=== PATIENT | female | born 2000 | race Caucasian/White ===

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

== ENCOUNTER → 2018-01-27 | Outpatient (CLI) | payer OTHER | LOC: LAB 09:40 | PROVIDERS: ATTEND Physician Assistant | DX: E83.52 Hypercalcemia (principal) | CPT/HCPCS: 36415; 83970 ==

== ENCOUNTER → 2018-01-27 | Outpatient (CLI) | payer OTHER | LOC: LAB 11:16 | PROVIDERS: ATTEND Internal Medicine Cardiovascular Disease | DX: R07.9 Chest pain, unspecified (principal) | CPT/HCPCS: 36415; 85379 ==

== ENCOUNTER → 2018-02-03 | Outpatient (CLI) | payer OTHER | LOC: LAB 14:47 | PROVIDERS: ATTEND Otolaryngology | DX: R09.81 Nasal congestion (principal) | CPT/HCPCS: 36415; 86003 ==

== ENCOUNTER → 2018-03-15 | Outpatient (CLI) | payer OTHER ==
[~2018-03-15] MED LIST: BIOT50002; IPRN ENA; MOM PO; NORE-74 PO; PHYT100T4 PO
--- NOTE | 2018-03-16 06:32 | RT STRESS TEST REPORT ---
[place] [facility] [place] NAME: CHILO GRIFFIN : [id number] MR: [id number] V: [id number] EXAM DATE: ORDERING PHYSICIAN: DIANELYS KHOURY TECHNOLOGIST: Sumit Acquisition Time: 2018-03-15 13:57:43 Total Exercise Time: 00:10:05 Test Indications: Chest Pain / Discomfort Medications: Protocol: BRUCE2 Max HR: 203 BPM 101% of Pred: 200 BPM Max BP: 143/079 mmHG Max Work Load: 11.8 METS Confirmed by DIANELYS KHOURY ([id number]) on 03/16/2018 6:32:08 AM Referred By: Overread By: DIANELYS KHOURY
== END ==
LOC: RESP 06:53
PROVIDERS: ATTEND Internal Medicine Cardiovascular Disease
DX: R07.9 Chest pain, unspecified (principal)
CPT/HCPCS: 93017

== ENCOUNTER → 2018-04-05 | Outpatient (REF) | payer OTHER | LOC: ZZSENDIN 17:51 | PROVIDERS: ATTEND Internal Medicine Endocrinology, Diabetes & Metabolism | DX: E04.9 Nontoxic goiter, unspecified (principal); E05.90 Thyrotoxicosis, unspecified without thyrotoxic crisis or storm | CPT/HCPCS: 84432; 84439; 84443; 84445; 84481 ==

== ENCOUNTER → 2018-04-09 | Outpatient (CLI) | payer OTHER ==
--- NOTE | 2018-04-09 19:48 | RADIOLOGY IMAGING REPORT ---
[place] [facility] [place] NAME: Addis Eugene : 2000 MR: [id number] V: [id number] EXAM DATE: ORDERING PHYSICIAN: ALEXSANDER DELATORRE TECHNOLOGIST: [place] [facility] [place] Patient: Addis Eugene : 2000 Visit/Account:[id number] Date of Sevice: 04/09/2018 THYROID HISTORY: Goiter. COMPARISON: None. FINDINGS: SIZE: Within normal limits. Right lobe: 1.0 x 1.6 x 5.6 cm Left lobe: 1.1 x 1.6 x 5.7 cm Isthmus: 2 mm PARENCHYMA: Homogeneous. NODULES: Right lobe: * 0.3 cm predominantly cystic nodule inferior. Left lobe: * 0.3 cm predominantly cystic nodules mid to superior and inferior. Isthmus: * None. VASCULARITY: Within normal limits. ADDITIONAL FINDINGS: None. IMPRESSION: Several very small cystic nodules bilateral, otherwise unremarkable ultrasound thyroid. No nodule war ranting further evaluation with tissue sampling. REFERENCE: 2015 [place] [employer] Management Guidelines for Adult Patients with Thyroid Nodules and D ifferentiated Thyroid Cancer: The [place] [employer] (CARMINE) Guidelines Task Force on Thyroid Nodules and Differentiated Thyroid Cancer. SONOGRAPHIC PATTERNS: * Benign: Purely cystic nodules (no solid component); estimated risk of malignancy <1 percent; no bi opsy recommended. * Very Low Suspicion: Spongiform or partially cystic nodules without any of the sonographic features described in low, intermediate, or high suspicion patterns; estimated risk of malignancy <3 percent; consider FNA at > 2 cm (Observation without FNA is also a reasonable option). * Low Suspicion: Isoechoic or hyperechoic solid nodule, or partially cystic nodule with eccentric so lid areas, without microcalcification, irregular margin or ETE (extra-thyroidal extension), or taller than wide shape; estimated risk of malignancy 5-10 percent; recommend FNA at >1.5 cm. * Intermediate Suspicion: Hypoechoic solid nodule with smooth margins without microcalcifications, E TE (extra-thyroidal extension), or taller than wide shape; estimated risk of malignancy 10-20 percent ; recommend FNA at > 1 cm. * High Suspicion: Solid hypoechoic nodule or solid hypoechoic component of a partially cystic nodule with one or more of the following features: irregular margins (infiltrative, microlobulated), microc alcifications, taller than wide shape, rim calcifications with small extrusive soft tissue component, evidence of ETE (extra-thyroidal extension); estimated risk of malignancy >70-90 percent; recommend FNA at > 1 cm. NOTES: * Although a sonographically suspicious subcentimeter thyroid nodule without evidence of extrathyroi sophie extension or sonographically suspicious lymph nodes may be observed with close sonographic follow -up rather than pursuing immediate FNA, patient age and preference may modify decision-making. * A > 50% interval increase in nodule volume and/or development of new suspicious sonographic featur es are felt to be a valid reasons for potential re-aspiration of a nodule previously shown to have be nign FNA cytology. Report Dictated By: Dayday Meyers MD at 04/09/2018 7:43 PM Report E-Signed By: Dayday Meyers MD at 04/09/2018 7:45 PM WSN:[id number]
== END ==
LOC: US 15:30
PROVIDERS: ATTEND Internal Medicine Endocrinology, Diabetes & Metabolism
DX: E04.1 Nontoxic single thyroid nodule (principal)
CPT/HCPCS: 76536

== ENCOUNTER → 2018-06-01 | Outpatient (REF) | payer OTHER ==
[2018-06-01 17:41] LABS: PLATELET COUNT, AUTOMATED 292 K/uL (150-450)
== END ==
PROVIDERS: ATTEND Nurse Practitioner Family
DX: R10.13 Epigastric pain (principal)
CPT/HCPCS: 82040; 82150; 82247; 82310; 82374; 82435; 82565; 82947; 83690; 84075; 84132; 84155; 84295; 84450; 84460; 84520; 85025

== ENCOUNTER 2018-06-05 19:37 | Emergency (ER) | payer OTHER ==
--- NOTE | 2018-06-05 20:19 | ER Report ---
History and Physical Time Seen By MD: 20:19 HPI/ROS CHIEF COMPLAINT: Abdominal pain HISTORY OF PRESENT ILLNESS: 18-year-old female patient presents to emergency room with complaint of abdominal pain. Patient states that she has had abdominal pain today as well as diarrhea and vomiting. She states the pain seems to be worse in the lower abdomen. She denies having any fevers or chills. She states she did take some antacids for this with no improvement. She states that she was able to eat some cereal earlier this morning without any difficulties. However she did try to eat some lunch and vomited. Patient states that she did have some nausea and vomiting earlier this week. She states that lasted for days and seemed to resolve. She states that she feels like she's not been able to keep any fluids down feels dehydrated. REVIEW OF SYSTEMS: Respiratory: No cough, no dyspnea. Cardiovascular: No chest pain, no palpitations. Gastrointestinal: As noted above Musculoskeletal: No back pain. Allergies: Coded Allergies: acetaminophen (Verified Allergy, Severe, 06/05/18) oxycodone (Verified Allergy, Severe, 06/05/18) Home Meds Active Scripts Ipratropium [place] 0.03% Ns (IPRATROPIUM BROMIDE 0.03% NS) 21 Mcg [place], 2 SPRAYS KELL BID for 30 Days, #1 BOT Prov:MAURI PINEDO JR, MD 02/17/18 Reported Medications Norethindrone A-E Estradiol (MICROGESTIN) 1 Each Tablet, 1 EACH PO 02/05/18 Magnesium Hydroxide (MILK OF MAGNESIA) Unknown Strength Oral.susp, PO, BOTTLE 02/05/18 Biotin (Biotin) 5,000 Mcg Tab.subl 02/05/18 Phytonadione (VITAMIN K) Unknown Strength Tablet, PO 02/05/18 Past Medical/Surgical History Patient has a past medical history of migraines, tachycardia, possible e ndometriosis. Patient has a surgical history of appendectomy, wisdom teeth removed. Reviewed Nurses Notes: Yes Smoking Status: Never Smoker Constitutional Vital Sign - Last 24 Hours 06/05/18 06/05/18 06/05/18 06/05/18 20:22 20:23 20:37 20:52 Temp 98.2 Pulse 95 96 87 75 Resp 16 23 9 B/P (MAP) 117/85 (96) 117/85 Pulse Ox 93 93 93 94 O2 Delivery Room Air 06/05/18 06/05/18 06/05/18 06/05/18 21:07 21:12 21:57 22:12 Pulse 86 88 90 93 Resp 19 21 Pulse Ox 94 84 92 91 06/05/18 06/05/18 22:27 22:42 Pulse 91 100 Pulse Ox 93 92 Physical Exam General Appearance: The patient is alert, has no immediate need for airway protection and no current signs of toxicity. Respiratory: Chest is non tender, lungs are clear to auscultation. Cardiac: regular rate and rhythm Gastrointestinal: Abdomen is soft and mildly tender in bilateral lower quadrants, no masses, bowel sounds normal. Musculoskeletal: Neck: Neck is supple and non tender. Extremities have full range of motion and are non tender. Skin: No rashes or lesions. DIFFERENTIAL DIAGNOSIS: After history and physical exam differential diagnosis was considered for abdominal pain including but not limited to appendicitis, cholecystitis, gastritis and urinary tract infection. Medical Decision Making Data Points Result Diagram: 06/05/18204006/05/182040 Laboratory Hematology Test 06/05/18 20:20 06/05/18 20:41 06/05/18 21:56 Urine Color Straw Urine Clarity Clear Urine pH 6.0 pH (4.8-9.5) Urine Specific [place] 1.006 Urine Protein Negative mg/dL (NEGATIVE) Urine Glucose (UA) Negative mg/dL (NEGATIVE) Urine Ketones Negative mg/dL (NEGATIVE) Urine Blood Negative (NEGATIVE) Urine Nitrite Negative (NEGATIVE) Urine Bilirubin Negative (NEGATIVE) Urine Urobilinogen Negative mg/dL (0.2-1.9) Urine Leukocyte Esterase Negative (NEGATIVE) Urine RBC 1 /HPF (0-2/HPF) Urine WBC <1 /HPF (0-5/HPF) Urine Squamous Epithelial Cells Few /LPF (</=FEW) Urine Bacteria Few /HPF (NONE-FEW) Urine Mucus None /HPF (NONE-FEW) Red Blood Count 5.14 M/uL (4.17-5.56) Mean Corpuscular Volume 88.0 fL (80.0-96.0) Mean Corpuscular Hemoglobin 30.5 pg (26.0-33.0) Mean Corpuscular Hemoglobin Concent 34.7 g/dL (32.0-36.0) Red Cell Distribution Width 12.2 % (11.5-14.5) Mean Platelet Volume 8.7 fL (7.2-11.1) Neutrophils (%) (Auto) 78.7 % (39.4-72.5) Lymphocytes (%) (Auto) 12.7 % (17.6-49.6) Monocytes (%) (Auto) 8.2 % (4.1-12.4) Eosinophils (%) (Auto) 0.1 % (0.4-6.7) Basophils (%) (Auto) 0.3 % (0.3-1.4) Nucleated RBC Relative Count (auto) 0.0 /100WBC Neutrophils # (Auto) 13.6 K/uL (2.0-7.4) Lymphocytes # (Auto) 2.2 K/uL (1.3-3.6) Monocytes # (Auto) 1.4 K/uL (0.3-1.0) Eosinophils # (Auto) 0.0 K/uL (0.0-0.5) Basophils # (Auto) 0.1 K/uL (0.0-0.1) Nucleated RBC Absolute Count (auto) 0.00 K/uL Stool Leukocytes, Qualitative Positive Sodium Level 137 mmol/L (137-145) Potassium Level 4.0 mmol/L (3.5-5.0) Chloride Level 102 mmol/L (98-107) Carbon Dioxide Level 26 mmol/L (22-31) Blood Urea Nitrogen 12 mg/dl (7-18) Creatinine 0.70 mg/dl (0.52-1.04) Glomerular Filtration Rate Calc > 60.0 Random Glucose 78 mg/dl (75-110) Calcium Level 9.8 mg/dl (8.4-10.2) Total Bilirubin 1.0 mg/dl (0.2-1.3) Aspartate Amino Transf (AST/SGOT) 21 U/L (0-35) Alanine Aminotransferase (ALT/SGPT) 27 U/L (0-56) Alkaline Phosphatase 72 U/L (0-126) Total Protein 7.6 g/dl (6.3-8.2) Albumin 4.8 g/dl (3.5-5.0) Amylase Level 117 U/L (0-110) Lipase 94 U/L (23-300) Human Chorionic Gonadotropin, Qual Negative (NEGATIVE) C. difficile Toxin B Gene (PCR) Positive Helicobacter pylori IgG Antibody Negative (NEGATIVE) Stool Occult Blood (IFOB) Positive (NEGATIVE) Chemistry Test 06/05/18 20:20 06/05/18 20:41 06/05/18 21:56 Urine Color Straw Urine Clarity Clear Urine pH 6.0 pH (4.8-9.5) Urine Specific [place] 1.006 Urine Protein Negative mg/dL (NEGATIVE) Urine Glucose (UA) Negative mg/dL (NEGATIVE) Urine Ketones Negative mg/dL (NEGATIVE) Urine Blood Negative (NEGATIVE) Urine Nitrite Negative (NEGATIVE) Urine Bilirubin Negative (NEGATIVE) Urine Urobilinogen Negative mg/dL (0.2-1.9) Urine Leukocyte Esterase Negative (NEGATIVE) Urine RBC 1 /HPF (0-2/HPF) Urine WBC <1 /HPF (0-5/HPF) Urine Squamous Epithelial Cells Few /LPF (</=FEW) Urine Bacteria Few /HPF (NONE-FEW) Urine Mucus None /HPF (NONE-FEW) White Blood Count 17.2 k/uL (4.5-11.0) Red Blood Count 5.14 M/uL (4.17-5.56) Hemoglobin 15.7 g/dL (12.0-16.0) Hematocrit 45.2 % (34.0-47.0) Mean Corpuscular Volume 88.0 fL (80.0-96.0) Mean Corpuscular Hemoglobin 30.5 pg (26.0-33.0) Mean Corpuscular Hemoglobin Concent 34.7 g/dL (32.0-36.0) Red Cell Distribution Width 12.2 % (11.5-14.5) Platelet Count 283 K/uL (150-450) Mean Platelet Volume 8.7 fL (7.2-11.1) Neutrophils (%) (Auto) 78.7 % (39.4-72.5) Lymphocytes (%) (Auto) 12.7 % (17.6-49.6) Monocytes (%) (Auto) 8.2 % (4.1-12.4) Eosinophils (%) (Auto) 0.1 % (0.4-6.7) Basophils (%) (Auto) 0.3 % (0.3-1.4) Nucleated RBC Relative Count (auto) 0.0 /100WBC Neutrophils # (Auto) 13.6 K/uL (2.0-7.4) Lymphocytes # (Auto) 2.2 K/uL (1.3-3.6) Monocytes # (Auto) 1.4 K/uL (0.3-1.0) Eosinophils # (Auto) 0.0 K/uL (0.0-0.5) Basophils # (Auto) 0.1 K/uL (0.0-0.1) Nucleated RBC Absolute Count (auto) 0.00 K/uL Stool Leukocytes, Qualitative Positive Glomerular Filtration Rate Calc > 60.0 Calcium Level 9.8 mg/dl (8.4-10.2) Total Bilirubin 1.0 mg/dl (0.2-1.3) Aspartate Amino Transf (AST/SGOT) 21 U/L (0-35) Alanine Aminotransferase (ALT/SGPT) 27 U/L (0-56) Alkaline Phosphatase 72 U/L (0-126) Total Protein 7.6 g/dl (6.3-8.2) Albumin 4.8 g/dl (3.5-5.0) Amylase Level 117 U/L (0-110) Lipase 94 U/L (23-300) Human Chorionic Gonadotropin, Qual Negative (NEGATIVE) C. difficile Toxin B Gene (PCR) Positive Helicobacter pylori IgG Antibody Negative (NEGATIVE) Stool Occult Blood (IFOB) Positive (NEGATIVE) Urinalysis Test 06/05/18 20:20 Urine Color Straw Urine Clarity Clear Urine pH 6.0 pH (4.8-9.5) Urine Specific [place] 1.006 Urine Protein Negative mg/dL (NEGATIVE) Urine Glucose (UA) Negative mg/dL (NEGATIVE) Urine Ketones Negative mg/dL (NEGATIVE) Urine Blood Negative (NEGATIVE) Urine Nitrite Negative (NEGATIVE) Urine Bilirubin Negative (NEGATIVE) Urine Urobilinogen Negative mg/dL (0.2-1.9) Urine Leukocyte Esterase Negative (NEGATIVE) Urine RBC 1 /HPF (0-2/HPF) Urine WBC <1 /HPF (0-5/HPF) Urine Squamous Epithelial Cells Few /LPF (</=FEW) Urine Bacteria Few /HPF (NONE-FEW) Urine Mucus None /HPF (NONE-FEW) EKG/Imaging Imaging CT abdomen and pelvis with IV contrast Indication: Nausea, vomiting and diarrhea. Comparison: None available. . Technique: Axial CT images were obtained through the abdomen and pelvis during injection of nonionic iodinated intravenous contrast. Reformatted coronal and sagittal images were also obtained. One of the following dose optimization techniques was utilized in the performance of this exam: Automated exposure control; adjustment of the mA and/or kV according to the patient's size; or use of an iterative reconstruction technique. Specific details can be referenced in the facility's radiology CT exam operational policy. Contrast: 75 ml of Isovue-370 IV contrast. Findings: Lower lung hoover: Limited views lower lung field are unremarkable. Liver: No focal parenchymal abnormality of the liver. Biliary: Gallbladder appears unremarkable as well as the intra and extra hepatic biliary system. Pancreas: Normal appearance. Spleen: Normal appearance. Adrenal glands: Unremarkable. Kidneys / retroperitoneum: No evidence of nephrolithiasis or hydronephrosis. No focal normality. Bowel / peritoneum / mesenteries: Colon shows no focal abnormality with some stool and fluid in the lumen. Status post appendectomy. Small bowel shows no f ocal normality or obstruction. The stomach is unremarkable. No free air, free fluid, fluid collections or areas of inflammation. Lymph node assessment: No pathologic adenopathy identified. Pelvic structures: Pelvic structures visualized within normal limits. Vessels: No significant atherosclerotic calcifications seen throughout a nonaneurysmal abdominal aorta and branches. Musculoskeletal / Body wall: No acute or aggressive osseous abnormality. IMPRESSION: 1. No acute intra-abdominal abnormality Report Dictated By: Sumanth Chacon at 06/05/2018 10:00 PM Report E-Signed By: Sumanth Chacon at 06/05/2018 10:07 PM ACUTE ABDOMEN SERIES 3 VIEW HISTORY: Abdominal pain. Diarrhea. COMPARISON: None. TECHNIQUE: PA upright view of the chest, AP supine and AP upright views of the abdomen. Chest: The lungs are clear. There is no pneumothorax or pleural effusion. The cardiac and mediastinal silhouettes are within normal limits. Bones and soft tissues are unremarkable. Abdomen: The distribution of bowel gas is normal, with bowel in all four quadrants as well as centrally. No free air. No dilated loops of bowel. There are a few nonspecific air-fluid levels. No acute osseous abnormality. There is surgical clips in the right lower quadrant, presumed from appendectomy. IMPRESSION: 1. No acute cardiopulmonary process. 2. There are scattered nonspecific air-fluid levels. Findings can be seen in setting of infection. No bowel obstruction. Report Dictated By: Quin Chin at 06/05/2018 9:58 PM Report E-Signed By: Quin Chin at 06/05/2018 10:00 PM ED Course/Re-evaluation ED Course Patient is admitted and examined, history and physical were obtained. Differential diagnoses were considered. On examination lungs are clear, heart is regular, abdomen was soft and tender most notably and low bilateral lower quadrants. A CBC, CMP, urinalysis were obtained. Patient had an elevated white count of 17,000 with left shift. I believe it could be secondary to the margination caused by vomiting. However acute abdominal x-ray showed possible b owel gas pattern consistent with infection. With the elevated white count I did opt to go ahead and do a CT scan of the abdomen and pelvis. That did show no acute findings. We are able to collect a stool sample. Patient was positive for blood and white blood cells. I did get the C. difficile back which was also positive. I believe the cause of her discomfort is likely C. difficile. She had been on clindamycin for a bacterial vaginosis recently. I believe that is likely the cause. I discussed the findings with patient. Patient states she been on Flagyl for times of the last 2 months. As a result of that we will go with the other first-line treatment of vancomycin orally. I discussed this with the patient who verbalized understanding and agreement. Patient should follow-up with her primary care provider in the next week. Patient was complaining of headache while she was here. We did give her sumatriptan with no improvement. Patient was treated with Toradol and Benadryl, as she already received Zofran. Patient states she had improvement in her headache, although she does feel dizzy secondary to Benadryl. Decision to Disposition Date: Jun 05, 2018 Decision to Disposition Time: 23:22 Depart Departure Latest Vital Signs Vital Signs Date Time Temp Pulse Resp B/P (MAP) Pulse Ox O2 Delivery O2 Flow Rate FiO2 06/05/18 22:42 100 92 06/05/18 21:12 21 06/05/18 20:23 98.2 117/85 Room Air Impression: Primary Impression: C. difficile colitis Condition: Improved Disposition: HOME OR SELF-CARE New Scripts Vancomycin Hcl (VANCOCIN HCL) 125 Mg Cap 125 MG PO QID, #38 CAP Prov: TIKI CABRERA 06/05/18 Patient Instructions: Clostridium Difficile Infection (ED) Additional Instructions: Increase fluid intake. Get plenty of rest. Follow up with your primary care provider in the next week for re-evaluation. Wash hands after going to the bathroom. Use Baby wipes to help with skin irritation. Apply Desitin to help protect the skin. Return to the ER if condition worsens. TIKI CABRERA Jun 05, 2018 20:19
[2018-06-05 20:23] VITALS: BP 117/85
[2018-06-05] MEDS ORDERED: NS(*) 0.9% 1000 ML BAG 1,000 ML IV ONE (20:29)
[2018-06-05 21:00] LABS: PLATELET COUNT, AUTOMATED 283 K/uL (150-450)
[2018-06-05] MEDS ORDERED: IOPAMIDOL 61% 100 ML INFUS BTL 100 ML ONE (21:37)
[2018-06-05] MEDS ORDERED: SUMAtriptan SUCC 25MG TAB PO ONE (21:50)
[2018-06-05] MEDS ORDERED: ONDANSETRON 4 MG/2 ML VIAL IVP ONE (21:50)
--- NOTE | 2018-06-05 22:04 | RADIOLOGY IMAGING REPORT ---
FACILITY: [facility] PATIENT NAME: Addis Eugene : 2000 MR: [id number] V: [id number] EXAM DATE: ORDERING PHYSICIAN: TIKI CABRERA TECHNOLOGIST: Location: [facility] Patient: Addis Eugene : 2000 Visit/Account:[id number] Date of Sevice: 06/05/2018 ACUTE ABDOMEN SERIES 3 VIEW HISTORY: Abdominal pain. Diarrhea. COMPARISON: None. TECHNIQUE: PA upright view of the chest, AP supine and AP upright views of the abdomen. Chest: The lungs are clear. There is no pneumothorax or pleural effusion. The cardiac and mediastinal silhouettes are within normal limits. Bones and soft tissues are unremarkable. Abdomen: The distribution of bowel gas is normal, with bowel in all four quadrants as well as central ly. No free air. No dilated loops of bowel. There are a few nonspecific air-fluid levels. No acute os seous abnormality. There is surgical clips in the right lower quadrant, presumed from appendectomy. IMPRESSION: 1. No acute cardiopulmonary process. 2. There are scattered nonspecific air-fluid levels. Findings can be seen in setting of infection. No bowel obstruction. Report Dictated By: Quin Chin at 06/05/2018 9:58 PM Report E-Signed By: Quin Chin at 06/05/2018 10:00 PM WSN:[id number]
--- NOTE | 2018-06-05 22:10 | RADIOLOGY IMAGING REPORT ---
FACILITY: [facility] - [place] PATIENT NAME: Addis Eugene : 2000 MR: [id number] V: [id number] EXAM DATE: ORDERING PHYSICIAN: TKII CABRERA TECHNOLOGIST: Location: [facility] - [place] Patient: Addis Eugene : 2000 Visit/Account:[id number] Date of Sevice: 06/05/2018 CT abdomen and pelvis with IV contrast Indication: Nausea, vomiting and diarrhea. Comparison: None available. . Technique: Axial CT images were obtained through the abdomen and pelvis during injection of nonioni c iodinated intravenous contrast. Reformatted coronal and sagittal images were also obtained. One of the following dose optimization techniques was utilized in the performance of this exam: Autom ated exposure control; adjustment of the mA and/or kV according to the patient's size; or use of an i terative reconstruction technique. Specific details can be referenced in the facility's radiology C T exam operational policy. Contrast: 75 ml of Isovue-370 IV contrast. Findings: Lower lung hoover: Limited views lower lung field are unremarkable. Liver: No focal parenchymal abnormality of the liver. Biliary: Gallbladder appears unremarkable as well as the intra and extra hepatic biliary system. Pancreas: Normal appearance. Spleen: Normal appearance. Adrenal glands: Unremarkable. Kidneys / retroperitoneum: No evidence of nephrolithiasis or hydronephrosis. No focal normality. Bowel / peritoneum / mesenteries: Colon shows no focal abnormality with some stool and fluid in the l umen. Status post appendectomy. Small bowel shows no focal normality or obstruction. The stomach is u nremarkable. No free air, free fluid, fluid collections or areas of inflammation. Lymph node assessment: No pathologic adenopathy identified. Pelvic structures: Pelvic structures visualized within normal limits. Vessels: No significant atherosclerotic calcifications seen throughout a nonaneurysmal abdominal aort a and branches. Musculoskeletal / Body wall: No acute or aggressive osseous abnormality. IMPRESSION: 1. No acute intra-abdominal abnormality Report Dictated By: Sumanth Chacon at 06/05/2018 10:00 PM Report E-Signed By: Sumanth Chacon at 06/05/2018 10:07 PM WSN:[id number]
[2018-06-05] MEDS ORDERED: diphenhydrAMINE 50 MG/ML VIAL IVP ONE (22:45)
[2018-06-05] MEDS ORDERED: KETOROLAC 15 MG/ML VIAL IVP ONE (22:45)
[2018-06-05] MEDS ORDERED: VANCOMYCIN HCL 125 MG CAPSULE PO SCH (23:20)
[2018-06-05] MEDS ORDERED: VANC125C10 PO (23:20)
[2018-06-05] MEDS ORDERED: VANCOMYCIN HCL 125 MG CAPSULE ONE (23:42)
[2018-06-06] MEDS ORDERED: METO50TA19 PO (17:46)
[2018-06-06] MEDS ORDERED: ONDA4TAB9 PO (19:35)
[2018-06-06] MEDS ORDERED: LOR5/325 PO (19:35)
[2018-06-06] MEDS ORDERED: PROM-110 PO (19:35)
== END 2018-06-05 23:55 | disposition home or self-care (01) ==
LOC: ER 20:21
DX: A04.72 Enterocolitis due to Clostridium difficile, not specified as recurrent (principal)
CPT/HCPCS: 74022; 74177; 81001; 82150; 82274; 83630; 83690; 84703; 85025; 86677; 87045; 87177; 87493; 96361; 96374; 96375; 99284; J1200; J1885; J2405; J7030; Q9967; 82040; 82247; 82310; 82374; 82435; 82565; 82947; 84075; 84132; 84155; 84295; 84450; 84460; 84520

== ENCOUNTER 2018-06-06 17:23 | Emergency (ER) | payer OTHER ==
[~2018-06-06 17:23] MED LIST changes: +VANC125C10 PO
[2018-06-06 17:35] VITALS: BP 94/72
[2018-06-06] MEDS ORDERED: METO50TA19 PO (17:46)
--- NOTE | 2018-06-06 17:57 | ER Report ---
History and Physical Time Seen By MD: 17:56 Hx. of Stated Complaint: continued n/v/d. diagnosed with c diff this am HPI/ROS CHIEF COMPLAINT: Vomiting all day HISTORY OF PRESENT ILLNESS: 18-year-old female seen in the ER last evening. She had an extensive diagnoses including a CT scan. She was recently on clindamycin and is subsequently developed Clostridium difficile which was diagnosed last night. She was started on vancomycin. Seemed to be tolerating the oral mitomycin. She's had no antibiotics. She's been vomiting all day long. She's had severe abdominal cramping. Had multiple episodes of diarrhea. She's been taking [id number] Imodium to try to slow down the diarrhea. He feels very dehydrated. REVIEW OF SYSTEMS: Respiratory: No cough, no dyspnea. Cardiovascular: No chest pain, no palpitations. Gastrointestinal: As above Musculoskeletal: No back pain. Allergies: Coded Allergies: acetaminophen (Verified Allergy, Severe, 06/05/18) oxycodone (Verified Allergy, Severe, 06/05/18) Home Meds Active Scripts Ondansetron 4 Mg Odt (ONDANSETRON 4 MG ODT) 4 Mg Tab.rapdis, 4 MG PO Q6H PRN for NAUSEA/VOMITING, #15 TAB Prov:PAM JIMÉNEZ DO 06/06/18 Promethazine Hcl (PROMETHAZINE HCL) 25 Mg Tablet, 25 MG PO Q4H PRN for NA USEA/VOMITING, #15 TAB Prov:PAM JIMÉNEZ Terrance DO 06/06/18 Hydrocodone Bit/Acetaminophen (HYDROCODON-ACETAMINOPHEN 5-325) 1 Each Tablet, 1 EACH PO Q4-6H PRN for PAIN, #12 TAKE ONE TABLET BY MOUTH EVERY 4-6 HOURS NEEDED FOR PAIN Prov:PAM JIMÉNEZ Terrance DO 06/06/18 Vancomycin Hcl (VANCOCIN HCL) 125 Mg Cap, 125 MG PO QID, #38 CAP Prov:TIKI CABRERA [employer] 06/05/18 Reported Medications Metoprolol Succinate (METOPROLOL SUCCINATE) 50 Mg Tab.er.24h, 1 TAB PO QDAY, TAB 06/06/18 Magnesium Hydroxide (MILK OF MAGNESIA) Unknown Strength Oral.susp, PO, BOTTLE 02/05/18 Biotin (Biotin) 5,000 Mcg Tab.subl 02/05/18 Phytonadione (VITAMIN K) Unknown Strength Tablet, PO 02/05/18 Discontinued Reported Medications Norethindrone A-E Estradiol (MICROGESTIN) 1 Each Tablet, 1 EACH PO 02/05/18 Discontinued Scripts Ipratropium [place] 0.03% Ns (IPRATROPIUM BROMIDE 0.03% NS) 21 Mcg [place], 2 SPRAYS KELL BID for 30 Days, #1 BOT Prov:MAURI PINEDO JR, MD 02/17/18 Reviewed Nurses Notes: Yes Old Medical Records Reviewed: Yes Smoking Status: Never Smoker Constitutional Vital Sign - Last 24 Hours 06/06/18 06/06/18 06/06/18 17:35 17:44 19:08 Temp 100.3 101.3 Pulse 130 ??? Resp 18 B/P (MAP) 94/72 Pulse Ox 96 O2 Delivery Room Air Physical Exam General Appearance: The patient is alert, has no immediate need for airway protection and no current signs of toxicity. Fever 100.3, tachycardic to the 13 0s HEENT: Pupils equal and round no injection. TMs normal, oropharynx without redness or exudate, mucous. Membranes are moist Respiratory: Chest is non tender, lungs are clear to auscultation. Cardiac: regular rate and rhythm Gastrointestinal: Abdomen is soft, mild diffuse tenderness, no masses, bowel sounds normal. Musculoskeletal: Neck: Neck is supple and non tender. No lymphadenopathy Extremities have full range of motion and are non tender. No edema Skin: No rashes or lesions. DIFFERENTIAL DIAGNOSIS: After history and physical exam differential diagnosis was considered for abdominal pain including but not limited to appendicitis, cholecystitis, gastritis and urinary tract infection. Clostridium difficile Medical Decision Making Data Points Result Diagram: 06/06/18 1803 06/06/18 1803 Laboratory Hematology Test 06/06/18 18:03 Red Blood Count 4.88 M/uL (4.17-5.56) Mean Corpuscular Volume 87.8 fL (80.0-96.0) Mean Corpuscular Hemoglobin 29.9 pg (26.0-33.0) Mean Corpuscular Hemoglobin Concent 34.1 g/dL (32.0-36.0) Red Cell Distribution Width 12.4 % (11.5-14.5) Mean Platelet Volume 8.6 fL (7.2-11.1) Neutrophils (%) (Auto) 87.2 % (39.4-72.5) Lymphocytes (%) (Auto) 5.7 % (17.6-49.6) Monocytes (%) (Auto) 6.4 % (4.1-12.4) Eosinophils (%) (Auto) 0.4 % (0.4-6.7) Basophils (%) (Auto) 0.3 % (0.3-1.4) Nucleated RBC Relative Count (auto) 0.0 /100WBC Neutrophils # (Auto) 14.1 K/uL (2.0-7.4) Lymphocytes # (Auto) 0.9 K/uL (1.3-3.6) Monocytes # (Auto) 1.0 K/uL (0.3-1.0) Eosinophils # (Auto) 0.1 K/uL (0.0-0.5) Basophils # (Auto) 0.0 K/uL (0.0-0.1) Nucleated RBC Absolute Count (auto) 0.00 K/uL Sodium Level 140 mmol/L (137-145) Potassium Level 4.8 mmol/L (3.5-5.0) Chloride Level 107 mmol/L (98-107) Carbon Dioxide Level 23 mmol/L (22-31) Blood Urea Nitrogen 11 mg/dl (7-18) Creatinine 0.90 mg/dl (0.52-1.04) Glomerular Filtration Rate Calc > 60.0 Random Glucose 87 mg/dl (75-110) Lactate 1.7 mmol/L (0.7-2.1) Calcium Level 9.7 mg/dl (8.4-10.2) Total Bilirubin 1.1 mg/dl (0.2-1.3) Aspartate Amino Transf (AST/SGOT) 17 U/L (0-35) Alanine Aminotransferase (ALT/SGPT) 30 U/L (0-56) Alkaline Phosphatase 74 U/L (0-126) Total Protein 7.0 g/dl (6.3-8.2) Albumin 4.5 g/dl (3.5-5.0) Amylase Level 79 U/L (0-110) Lipase 66 U/L (23-300) Chemistry Test 06/06/18 18:03 White Blood Count 16.1 k/uL (4.5-11.0) Red Blood Count 4.88 M/uL (4.17-5.56) Hemoglobin 14.6 g/dL (12.0-16.0) Hematocrit 42.9 % (34.0-47.0) Mean Corpuscular Volume 87.8 fL (80.0-96.0) Mean Corpuscular Hemoglobin 29.9 pg (26.0-33.0) Mean Corpuscular Hemoglobin Concent 34.1 g/dL (32.0-36.0) Red Cell Distribution Width 12.4 % (11.5-14.5) Platelet Count 266 K/uL (150-450) Mean Platelet Volume 8.6 fL (7.2-11.1) Neutrophils (%) (Auto) 87.2 % (39.4-72.5) Lymphocytes (%) (Auto) 5.7 % (17.6-49.6) Monocytes (%) (Auto) 6.4 % (4.1-12.4) Eosinophils (%) (Auto) 0.4 % (0.4-6.7) Basophils (%) (Auto) 0.3 % (0.3-1.4) Nucleated RBC Relative Count (auto) 0.0 /100WBC Neutrophils # (Auto) 14.1 K/uL (2.0-7.4) Lymphocytes # (Auto) 0.9 K/uL (1.3-3.6) Monocytes # (Auto) 1.0 K/uL (0.3-1.0) Eosinophils # (Auto) 0.1 K/uL (0.0-0.5) Basophils # (Auto) 0.0 K/uL (0.0-0.1) Nucleated RBC Absolute Count (auto) 0.00 K/uL Glomerular Filtration Rate Calc > 60.0 Lactate 1.7 mmol/L (0.7-2.1) Calcium Level 9.7 mg/dl (8.4-10.2) Total Bilirubin 1.1 mg/dl (0.2-1.3) Aspartate Amino Transf (AST/SGOT) 17 U/L (0-35) Alanine Aminotransferase (ALT/SGPT) 30 U/L (0-56) Alkaline Phosphatase 74 U/L (0-126) Total Protein 7.0 g/dl (6.3-8.2) Albumin 4.5 g/dl (3.5-5.0) Amylase Level 79 U/L (0-110) Lipase 66 U/L (23-300) ED Course/Re-evaluation Clinical Indication for ER IV: Hydration, IV Access ED Course Patient was minute to an examination room. H&P was done. The differential diagnoses was considered. On clinical examination. Patient has a benign nonsurgical abdomen. She's been vomiting and complaining of severe abdominal cramping. Patient was treated with IV fluid hydration, Zofran, Phenergan and fentanyl 50 g for pain. Diagnostic studies are unremarkable except for mildly elevated white blood cell count. Patient was given an oral challenge and consumed a Popsicle without emesis. She did have a little bit of nausea. A 2nd dose of Zofran was administered as well as Toradol 30 mg IV. Patient able to tolerate by mouth's. She'll be discharged home on Zofran and Phenergan. She is advised a clear liquid diet for 48 hours and then advance to the brat diet. She is advised to continue on her vancomycin. She is given a limited supply of Lortab for temporary pain relief. She is allergic to Percocet. She states she took hydrocodone for was done to the extraction and was able to tolerated in the past. Patient advised to follow-up with primary care if unimproved in 3-5 days. Decision to Disposition Date: Jun 06, 2018 Decision to Disposition Time: 19:32 Depart Departure Latest Vital Signs Vital Signs Date Time Temp Pulse Resp B/P (MAP) Pulse Ox O2 Delivery O2 Flow Rate FiO2 06/06/18 19:08 ??? 06/06/18 17:44 101.3 06/06/18 17:35 18 94/72 96 Room Air Impression: Primary Impression: Vomiting Additional Impression: Abdominal cramps Condition: Improved Disposition: HOME OR SELF-CARE Referrals: JHONNY LOPEZ DO (PCP) New Scripts Ondansetron 4 Mg Odt (ONDANSETRON 4 MG ODT) 4 Mg Tab.rapdis 4 MG PO Q6H PRN for NAUSEA/VOMITING, #15 TAB Prov: PAM JIMÉNEZ DO 06/06/18 Promethazine Hcl (PROMETHAZINE HCL) 25 Mg Tablet 25 MG PO Q4H PRN for NAUSEA/VOMITING, #15 TAB Prov: PAM JIMÉNEZ DO 06/06/18 Hydrocodone Bit/Acetaminophen (HYDROCODON-ACETAMINOPHEN 5-325) 1 Each Tablet 1 EACH PO Q4-6H PRN for PAIN, #12 TAKE ONE TABLET BY MOUTH EVERY 4-6 HOURS NEEDED FOR PAIN Prov: PAM JIMÉNEZ DO 06/06/18 Patient Instructions: Acute Nausea and Vomiting (ED), Clear Liquid Diet (ED) Additional Instructions: Follow clear liquid diet for 48 hours and advance to the brat diet, bananas, rice, applesauce and toast Ibuprofen 200 mg 3 tablets 3 times a day for inflammatory pain relief Use Tylenol 650 mg for pain relief Follow-up with primary care if unimproved in 3-5 days Problem Qualifiers Primary Impression: Vomiting Vomiting type: unspecified Vomiting Intractability: unspecified Nausea presence: with nausea Qualified Codes: R11.2 - Nausea with vomiting, unspecified PAM JIMÉNEZ DO Jun 06, 2018 17:57
[2018-06-06] MEDS ORDERED: fentaNYL CITR 100 MCG/2 ML AMP IVP ONE (18:00)
[2018-06-06] MEDS ORDERED: PROMETHAZINE 25 MG/ML 1 ML AMP IVP ONE (18:00)
[2018-06-06] MEDS ORDERED: NS(*) 0.9% 1000 ML BAG 1,000 ML IV ONE (18:00)
[2018-06-06] MEDS ORDERED: ONDANSETRON 4 MG/2 ML VIAL IVP ONE ×2 (18:00→19:05)
[2018-06-06 18:18] LABS: PLATELET COUNT, AUTOMATED 266 K/uL (150-450)
[2018-06-06] MEDS ORDERED: KETOROLAC 30 MG/ML VIAL IVP ONE (19:05)
[2018-06-06] MEDS ORDERED: LOR5/325 PO (19:35)
[2018-06-06] MEDS ORDERED: ONDA4TAB9 PO (19:35)
[2018-06-06] MEDS ORDERED: PROM-110 PO (19:35)
[2018-06-06] MEDS ORDERED: ACET/HYDROC 5/325MG TH ER ONLY 2 TAB/BOTTLE PO ONE (19:40)
[2018-06-06] MEDS ORDERED: PROMETHAZINE HCL 25 MG TAB TH 2 TAB/BOTTLE PO ONE (19:40)
[2018-06-06] MEDS ORDERED: ONDANSETRON 4 MG ODT TH SL ONE (19:40)
== END 2018-06-06 20:16 | disposition home or self-care (01) ==
LOC: ER 17:57
DX: R11.2 Nausea with vomiting, unspecified (principal); R10.84 Generalized abdominal pain
CPT/HCPCS: 82150; 83605; 83690; 85025; 96361; 96374; 96375; 99284; J2405; J2550; J3010; J7030; S0119; 82040; 82247; 82310; 82374; 82435; 82565; 82947; 84075; 84132; 84155; 84295; 84450; 84460; 84520